=== PATIENT | male | born 1985 | race Caucasian/White ===

== ENCOUNTER 2018-10-22 18:44 | Emergency (ER) | payer BC ==
[~2018-10-22] VITALS: Ht 175.3 cm; Wt 77.1 kg
[2018-10-22] MEDS ORDERED: IBUPROFEN 200 MG TABLET. PO ONE (20:15)
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
[2018-10-22] MEDS ORDERED: IBUP-1007 PO (21:57)
[2018-10-22] MEDS ORDERED: HYDR-3164 PO (21:57)
[2018-10-22] MEDS ORDERED: ORPH100T PO (21:58)
[2018-10-22 22:15] VITALS: BP 136/72
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
== END 2018-10-22 22:18 | disposition home or self-care (01) ==
LOC: ER 18:44
DX: S16.1XXA Strain of muscle, fascia and tendon at neck level, initial encounter (principal); F32.9 Major depressive disorder, single episode, unspecified; I10 Essential (primary) hypertension; V43.52XA Car driver injured in collision with other type car in traffic accident, initial encounter; Y93.89 Activity, other specified; Y92.410 Unspecified street and highway as the place of occurrence of the external cause; Y99.8 Other external cause status
CPT/HCPCS: 70450; 71111; 72072; 72125; 99284-25